=== PATIENT | male | born 1990 | race Caucasian/White ===

== ENCOUNTER → 2018-02-19 | Day surgery (SDC) | payer OTHER ==
--- NOTE | 2018-02-17 16:31 | History & Physical Pre-Op ---
General Information and HPI History of Present Illness: Armen is a 27-year-old male who presents status post Achilles tendon rupture with an acute onset. Patient states that he was playing basketball and noted a sudden popping noise with the feeling of a blunt impact over the watershed region of his right Achilles tendon. The patient admits to pain and swelling to the posterior right ankle. Past History Surgical History Pertinent Surgical History: non-contributory Review of Systems Review of Systems: Unremarkable except for that noted in history of present illness Exam & Diagnostic Data Physical Exam: Lungs clear bilaterally. Heart sounds rate and rhythm regular. Lower extremity physical exam demonstrates intact pedal pulses bilaterally. Both dorsalis pedis and posterior tibial arteries are palpable bilaterally. Patient without any sensory motor deficits. Deep tendon reflexes grossly intact. Patient noted to have edema at the posterior aspect of the right ankle, the level of the watershed region. There is a palpable dell identified. A positive Walter sign noted. Assessment/Plan Assessment/Plan: Acute Achilles tendon rupture right. A lengthy discussion reviewing both surgical and conservative options was held the patient at bedside and the patient elects to go forward with surgery despite the risks. As Ranked By This Provider Problem List: 1. Laceration of right Achilles tendon, initial encounter Attending MD Review Statement Attending Statement Attending MD Statement: examined this patient
[~2018-02-19] VITALS: Ht 170.2 cm; Wt 90.7 kg
--- NOTE | 2018-02-19 12:37 | Operative Report ---
Operative/Inv Procedure Report Surgery Date: 02/19/18 Name of Procedure: 1 open repair of acute Achilles tendon rupture right 2 intraoperative administration of ankle block anesthesia 3 intraoperative application of Givens compressive dressing and posterior splint right Pre-Operative Diagnosis: 1 Achilles tendon rupture with 5 cm gap right Post-Operative Diagnosis: The same Estimated Blood Loss: scant Surgeon/Lens Grinding Machine Operator: Christopher Austin DPM Anesthesia: general endotracheal tube Operative/Procedure Note Note: After obtaining informed consent the patient was brought to the operating room and intubated on the stretcher in the supine position. A well-padded thigh tourniquet was placed about the patient's right upper thigh. Next, the patient was transferred to the operating table in a prone position. The patient was then securely fastened to the operating table utilizing safety belt. 10 mL of 0.5% Marcaine plain was infiltrated about the patient's right ankle. The right foot, ankle and lower extremity were then scrubbed, prepped and draped in usual aseptic manner. The right lower extremity was elevated to exsanguinate the limb , at which point the thigh tourniquet was inflated 275 mmHg. Attention directed to the posterior aspect of the right ankle, where an 8 cm incision biased slightly medial to the midline was incised with a 15 blade. The dissection was then carried out septae stitches. All vital neurovascular structures were identified and protected. The sural nerve was identified and retracted laterally. The peritenon was then incised linearly, exposing a full-thickness rupture in the watershed region of the Achilles tendon. Frayed and mop ended tissue at the margins were debrided sharply. An Allis clamp was utilized to distract the proximal segment distally and the gap was noted to reduce with very little tension on the tendon. A modified Bunnel type stitch with #2 FiberWire was utilized to reapproximate then the tendon ends. They and tendon repair was then reinforced with a 5 cm x 5 cm graft jacket and stabilized to the underlying repair with 3-0 Vicryl and an open over stitch. The peritenon was then repaired with 3-0 Vicryl and the septae stitches reapproximated 3-0 Vicryl. Skin edges were then reapproximated with 3-0 nylon. Incision was dressed with Xeroform, 4 x 4's Kerlix and an Stanford wrap. A well-padded Givens compressive dressing and posterior splint was then applied to the right lower extremity with the ankle in 10 of equinus. Patient was noted tolerate both procedure and anesthesia well and the patient was transported from the operating room to recovery with vital signs stable.
== END ==
LOC: STS 03:06
DX: S86.011A Strain of right Achilles tendon, initial encounter (principal); Y93.67 Activity, basketball; G47.33 Obstructive sleep apnea (adult) (pediatric); F17.200 Nicotine dependence, unspecified, uncomplicated
CPT/HCPCS: C9399; J0690; J1885; J2250; Q4107